=== PATIENT | female | born 1960 ===

== ENCOUNTER → 2017-08-07 | Outpatient (CLI) | payer BC ==
--- NOTE | 2017-08-10 11:47 | MM ---
Reason for exam: screening (asymptomatic). Last mammogram was performed 1 year and 1 month ago. History: Patient is postmenopausal and has history of ovarian cancer at age 49. Family history of premenopausal breast cancer in mother at age 38. Stereotactic core biopsy, June 02, 2002. Took hormonal contraceptives for 6 months beginning at age 35. Physical Findings: A clinical breast exam by your physician is recommended on an annual basis and results should be correlated with mammographic findings. MG 3D Screening Mammo W/Cad Bilateral CC and MLO view(s) were taken. Prior study comparison: July 09, 2016, bilateral MG screening mammo w CAD. June 15, 2015, bilateral MG screening mammo w CAD. The breast tissue is heterogeneously dense. This may lower the sensitivity of mammography. Finding: There are typically benign calcifications in the upper outer quadrant of the right breast similar in comparison to multiple priors. No suspicious abnormality. ASSESSMENT: Benign, BI-RAD 2 RECOMMENDATION: Routine screening mammogram of both breasts in 1 year.
== END | disposition home or self-care (01) ==
LOC: RADMAMWWP 15:30
PROVIDERS: ATTEND Obstetrics & Gynecology
DX: Z12.31 Encounter for screening mammogram for malignant neoplasm of breast (principal)
CPT/HCPCS: 77063; 77067

== ENCOUNTER → 2018-09-02 | Outpatient (CLI) | payer BC ==
--- NOTE | 2018-09-03 10:34 | MM ---
Reason for exam: screening (asymptomatic). Last mammogram was performed 1 year and 1 month ago. History: Patient is postmenopausal and has history of ovarian cancer at age 49. Family history of premenopausal breast cancer in mother at age 38. Stereotactic core biopsy, June 02, 2002. Took hormonal contraceptives for 6 months beginning at age 35. Physical Findings: A clinical breast exam by your physician is recommended on an annual basis and results should be correlated with mammographic findings. MG 3D Screening Mammo W/Cad Bilateral CC and MLO view(s) were taken. Prior study comparison: August 07, 2017, bilateral MG 3d screening mammo w/cad. July 09, 2016, bilateral MG screening mammo w CAD. The breast tissue is heterogeneously dense. This may lower the sensitivity of mammography. There are benign appearing round calcifications in the right breast. There is no discrete abnormality. ASSESSMENT: Benign, BI-RAD 2 RECOMMENDATION: Routine screening mammogram of both breasts in 1 year.
== END | disposition home or self-care (01) ==
LOC: RADMAMWWP 13:59
PROVIDERS: ATTEND Obstetrics & Gynecology
DX: Z12.31 Encounter for screening mammogram for malignant neoplasm of breast (principal); Z80.3 Family history of malignant neoplasm of breast
CPT/HCPCS: 77063; 77067

== ENCOUNTER → 2021-04-04 | Outpatient (CLI) | payer BC ==
--- NOTE | 2021-04-05 13:09 | MM ---
Reason for exam: screening (asymptomatic). Last mammogram was performed 1 year and 1 month ago. History: Patient is postmenopausal and has history of ovarian cancer at age 49. Family history of premenopausal breast cancer in mother at age 38. Stereotactic core biopsy, June 02, 2002. Took hormonal contraceptives for 6 months beginning at age 35. Physical Findings: A clinical breast exam by your physician is recommended on an annual basis and results should be correlated with mammographic findings. MG 3D Screening Mammo W/Cad Bilateral CC and MLO view(s) were taken. Prior study comparison: February 27, 2020, bilateral MG 3d screening mammo w/cad. September 02, 2018, bilateral MG 3d screening mammo w/cad. The breast tissue is heterogeneously dense. This may lower the sensitivity of mammography. Stable benign calcifications. There is no discrete abnormality. No significant changes when compared with prior studies. ASSESSMENT: Benign, BI-RAD 2 RECOMMENDATION: Routine screening mammogram of both breasts in 1 year.
== END | disposition home or self-care (01) ==
LOC: RADMAMWWP 11:12
PROVIDERS: ATTEND Obstetrics & Gynecology

== ENCOUNTER → 2022-05-09 | Outpatient (CLI) | payer BC ==
--- NOTE | 2022-05-09 16:38 | BD ---
EXAMINATION TYPE: Axial Bone Density DATE OF EXAM: 05/09/2022 COMPARISON: NONE CLINICAL HISTORY: 62 year old Female. ICD-10 CODE: M85.88 disorder of bone Height: 63 Weight: 172.5 FRAX RISK QUESTIONS: Alcohol (3 or more units per day): no Family History (Parent hip fracture): no Glucocorticoids (More than 3mos): no (Ex: prednisone, prednisolone, methylprednisolone, dexamethasone, and hydrocortisone). History of Fracture in Adulthood: no Secondary Osteoporosis: 1. Type 1 Diabetes: no 2. Hyperthyroidism: no 3. Menopause before 45: yes 4. Malnutrition: no 5. Chronic liver disease: no Rheumatoid Arthritis: no Current Tobacco Use: no RISK FACTORS HISTORY OF: Surgery to Spine/Hip(right/left)/Wrist (right/left): no Family History of Osteoporosis: yes Active: yes Diet low in dairy products/other sources of calcium: no Postmenopausal woman: yes Lost more than 2 inches in height since high school: no MEDICATIONS: Thyroid Medications: How Long: Additional History: EXAM MEASUREMENTS: Bone mineral densitometry was performed using the [employer] System. Bone mineral density as measured about the Lumbar spine is: ----- L1-L4(G/cm2): 0.963 T Score Values are as follows: ----- L1: -1.7 ----- L2: -2.3 ----- L3: -1.8 ----- L4: -1.6 ----- L1-L4: -1.8 Bone mineral density has: decreased -5.4 % since study of: 04.01.2013 Bone mineral density about the R hip (g/cm2): 0.863 Bone mineral density about the L hip (g/cm2): 0.807 T Score values are as follows: -----R Neck: -1.3 -----L Neck: -1.7 -----R Total: -0.8 -----L Total: -0.9 Bone mineral density has: decreased -16.0 % since study of: 04.01.2013 FRAX%s: The graph provided illustrates a 8.9% chance for a major osteoporotic fx and a 1.0% chance fo r the hips probability for fx in 10 years time. IMPRESSION: Osteopenia (T Score between -2.5 and -1). There is slightly increased risk of fracture and the patient may be considered for treatment. Re-Screen 2-5 years. NOTE: T-SCORE=SD OF THE YOUNG ADULT MEAN.
--- NOTE | 2022-05-12 08:39 | MM ---
Reason for Exam: Screening (asymptomatic). Last mammogram was performed 1 year(s) and 1 month(s) ago. Patient History: Menarche at age 12. First Full-Term at age 25. Left ovary removed at age 49. Right ovary removed at age 49. Hysterectomy at age 36. Postmenopausal. Ovarian cancer, age 49. Hormonal Contraceptives for 6 months from age 35 until age 36. 06/02/2002, Stereotactic Core Biopsy. Mother had breast cancer, age 38. Risk Values: Alivia 5 year model risk: 3.6%. NCI Lifetime model risk: 14.9%. Prior Study Comparison: 09/02/2018 Bilateral Screening Mammogram, [facility]. 02/27/2020 Bilateral Screening Mammogram, [facility]. 04/04/2021 Bilateral Screening Mammogram, [facility]. Tissue Density: The breast tissue is heterogeneously dense. This may lower the sensitivity of mammography. Findings: Analyzed By CAD. There are some grouped benign-appearing calcifications upper outer posterior right breast. No suspicious groups of microcalcifications, spiculated or lobular masses, architectural distortion or other secondary signs of malignancy are mammographically apparent. Overall Assessment: Benign, BI-RAD 2 Management: Screening Mammogram of both breasts in 1 year. A negative mammogram report should not preclude additional follow up of suspicious palpable abnormalities. Patient should continue monthly self breast exam. A clinical breast exam by your physician is recommended on an annual basis and results should be correlated with mammographic findings. Electronically signed and approved by: Ulises Peterson D.O. Radiologis
== END | disposition home or self-care (01) ==
LOC: RADMAMWWP 14:17
PROVIDERS: ATTEND Obstetrics & Gynecology
DX: Z12.31 Encounter for screening mammogram for malignant neoplasm of breast (principal); Z13.820 Encounter for screening for osteoporosis; M85.89 Other specified disorders of bone density and structure, multiple sites; Z78.0 Asymptomatic menopausal state; Z80.3 Family history of malignant neoplasm of breast
CPT/HCPCS: 77063; 77067; 77080

== ENCOUNTER → 2023-05-12 | Outpatient (CLI) | payer BC ==
--- NOTE | 2023-05-13 09:36 | MM ---
Reason for Exam: Screening (asymptomatic). Last screening mammogram was performed 12 month(s) ago. Patient History: Menarche at age 12. First Full-Term at age 25. Left ovary removed at age 49. Right ovary removed at age 49. Hysterectomy at age 36. Postmenopausal. Ovarian cancer, age 49. Hormonal Contraceptives for 6 months from age 35 until age 36. 06/02/2002, Stereotactic Core Biopsy. Mother had breast cancer, age 38. Risk Values: Alivia 5 year model risk: 3.7%. NCI Lifetime model risk: 14.4%. Prior Study Comparison: 02/27/2020 Bilateral Screening Mammogram, [facility]. 04/04/2021 Bilateral Screening Mammogram, [facility]. 05/09/2022 Bilateral MG 3D screening mammo w/cad, [facility]. Tissue Density: The breast tissue is heterogeneously dense. This may lower the sensitivity of mammography. Findings: Analyzed By CAD. There is no suspicious group of microcalcifications or new suspicious mass in either breast. Overall Assessment: Benign, BI-RAD 2 Management: Screening Mammogram of both breasts in 1 year. . Patient should continue monthly self-breast exams. A clinical breast exam by your physician is recommended on an annual basis. This exam should not preclude additional follow-up of suspicious palpable abnormalities. Note on Alivia scores and lifetime risk: 1. A Alivia score greater than 3% is considered moderate risk. If this is the case, consider specialist referral to assess eligibility for a risk reducing agent. 2. If overall lifetime risk for the development of breast cancer is 20% or higher, the patient may qualify for future screening with alternating mammogram and breast MRI. Electronically signed and approved by: Chace Qureshi M.D. Radiologis
== END | disposition home or self-care (01) ==
LOC: RADMAMWWP 09:03
PROVIDERS: ATTEND Obstetrics & Gynecology
DX: Z12.31 Encounter for screening mammogram for malignant neoplasm of breast (principal); Z78.0 Asymptomatic menopausal state; Z80.3 Family history of malignant neoplasm of breast
CPT/HCPCS: 77063; 77067

== ENCOUNTER → 2023-05-12 | Outpatient (CLI) | payer BC ==
[2023-05-12 15:12] LABS: Basophils # (A) 0.08 X 10*3/uL (0.00-0.10); Basophils % (A) 0.8 %; Eosinophils # (A) 0.19 X 10*3/uL (0.04-0.35); Eosinophils % (A) 1.8 %; HGB 15.6 d/dL (12.0-15.0); Lymphocytes # (A) 3.05 X 10*3/uL (0.90-5.00); Lymphocytes % (A) 28.9 %; MCH 28.6 pg (27.0-32.0); MCHC 33.9 d/dL (32.0-37.0); MCV 84.2 FL (80.0-97.0); Mean Platelet Volume 9.8 FL (9.5-12.2); Monocytes # (A) 0.78 X 10*3/uL (0.20-1.00); Monocytes % (A) 7.4 %; NRBC Per 100 WBC 0 X 10*3/uL (0.00-0.01); Neutrophils # (A) 6.41 X 10*3/uL (1.80-7.70); Neutrophils % (A) 60.5 %; Platelet Count 346 X 10*3/uL (140-440); RBC 5.46 X 10*6/uL (4.10-5.20); RDW 14.1 % (11.5-14.5); WBC 10.57 X 10*3/uL (4.50-10.00)
[2023-05-12 16:02] LABS: ALT 44 U/L (8-44); AST 29 U/L (13-35); Albumin 4.7 d/dL (3.8-4.9); Albumin/Globulin Ratio 1.81 Ratio (1.60-3.17); Alkaline Phosphatase 70 U/L (41-126); BUN/Creat Ratio 24.25 Ratio (12.00-20.00); Blood Urea Nitrogen 19.4 mg/dL (9.0-27.0); Calcium 10.7 mg/dL (8.7-10.3); Carbon Dioxide 24.9 mmol/L (21.6-31.8); Chloride 100 mmol/L (96-109); Chol/HDL Ratio 2.75 Ratio; Globulin 2.6 d/dL (1.6-3.3); Glucose 168 mg/dL (70-110); LDL Cholesterol,Calculated 63.5 mg/dL (0.0-131.0); Potassium 4.4 mmol/L (3.5-5.5); Sodium 138 mmol/L (135-145); Total Bilirubin 0.6 mg/dL (0.3-1.2); Total Protein 7.3 d/dL (6.2-8.2)
== END | disposition home or self-care (01) ==
LOC: LABWHC1 09:06
PROVIDERS: ATTEND Family Medicine
DX: I10 Essential (primary) hypertension (principal); E11.9 Type 2 diabetes mellitus without complications; E03.9 Hypothyroidism, unspecified; E78.5 Hyperlipidemia, unspecified
CPT/HCPCS: 36415; 80053; 80061; 83036; 84443; 85025